=== PATIENT | male | born 1980 | race Caucasian/White ===

== ENCOUNTER 2022-04-20 14:17 | Emergency (ER) | payer SELFPAY ==
[2022-04-20 14:17] VITALS: BP 101/59; PULSE 88; RESP 18; TEMP 37.1; O2SAT 98; BMI 25.1
--- NOTE | 2022-04-20 14:25 | ECG_ITS ---
APPROVED REPORT Exam: Resting ECG HR:79 bpm ECG Measurements Heart Rate 79 AXES AR 130 P 50 QRSd 102 QRS -53 QT 370 T 62 QTc 405 Conclusion SINUS RHYTHM PATTERN CONSISTENT WITH PULMONARY DISEASE LEFT ANTERIOR FASCICULAR BLOCK [QRS AXIS <= -45, QR IN I, RS IN II] ABNORMAL ECG UNCONFIRMED REPORT Electronically signed by : Bassem Damian MD 04/20/2022 21:46:43
--- NOTE | 2022-04-20 14:33 | CT_ITS ---
FINAL REPORT CLINICAL HISTORY: FALL, patient did have LOC , but not sure how long FINDINGS: Axial CT images of the cervical spine were obtained without contrast. Sagittal and coronal reformatted images were also obtained. This study was performed with techniques to keep radiation doses as low as reasonably achievable (ALARA). Individualized dose reduction techniques using automated exposure control or adjustment of mA and/or kV according to the patient's size were employed. There is no evidence of fracture or dislocation. The bony alignment is normal. There are mild degenerative changes at C5-6 and C6-7 with osteophytes. There is neural foraminal narrowing at C5-6 and C6-7. There is mild central canal stenosis at C6-7. No paraspinous soft tissue abnormality is seen. Limited images of the upper thorax are unremarkable. IMPRESSION: Degenerative changes as above with no acute bony abnormality. Reviewed, Interpreted and Dictated by Rubio Clark III, MD Transcribed by Vanessa Noel Authenticated and [facility]
--- NOTE | 2022-04-20 14:33 | CT_ITS ---
FINAL REPORT CLINICAL HISTORY: FALL, patient states he did have LOC , but not sure how long FINDINGS: Axial images of the head were obtained without contrast. Coronal reformatted images were also obtained.This study was performed with techniques to keep radiation doses as low as reasonably achievable (ALARA). Individualized dose reduction techniques using automated exposure control or adjustment of mA and/or kV according to the patient''s size were employed. There is no evidence of intracranial hemorrhage or mass. The ventricular size is within normal limits. There is no evidence of shift of the midline structures. No abnormal extra axial fluid collection is identified. No skull abnormality is seen on the bone window images. There is fluid in the left maxillary sinus, may represent hemorrhage or sinusitis. IMPRESSION: No acute intracranial abnormality. Left maxillary hemorrhage or sinusitis. Reviewed, Interpreted and Dictated by Rubio Clark III, MD Transcribed by Keiry Judge Authenticated and . [facility]
--- NOTE | 2022-04-20 14:47 | PC.NURSE ---
radiology taking pt for CT
--- NOTE | 2022-04-20 14:53 | PC.NURSE ---
PT TO CT AT THIS TIME
[2022-04-20 14:59] LABS: Chloride 100 mmol/L (98-107); Sodium 139 mmol/L (136-145)
--- NOTE | 2022-04-20 14:59 | PC.NURSE ---
PT RETURNED FROM CT
--- NOTE | 2022-04-20 15:00 | HMH.EDGENADL ---
Discharge Plan Disposition Patient Disposition: Home, Self-Care Condition: Good Chief Complaint: Fall Prescriptions Prescriptions: No Action No Known Home Medications Referrals Follow up/Referrals: Provider,Referral, MD [Primary Care Provider] - See instructions Activity Restrictions/Add. Instructions Additional Instructions/Restrictions: Rest and drink plenty of fluids today. You are being provided with a list of physicians available for follow-up of your condition. Please call a physician on this list to arrange a follow-up appointment as soon as possible. Return to the emergency department if fainting recurs or if any new symptoms such as chest pain, shortness of breath, palpitations or rapid heartbeat. Clinical Impressions Clinical Impression: Syncope, Contusion of scalp Instructions Patient Instructions: DI for Syncope in Adults (Fainting) Discharge ED Provider: Yong Harrison General Adult HPI General Chief complaint: Fall Stated complaint: fall Time Seen by Provider: 04/20/22 15:10 Mode of Arrival: EMS Limitations: No Limitations Description of Symptoms (Recalled from ER Triage Doc. by RN): PT BROUGHT IN VIA EMS FOR A FALL FROM STANDING AT HOME. PT STATES HE STOOD UP TO GO TO THE BATHROOM AND FELL TO THE FLOOR. PAIN TO BACK OF HEAD, UNKNOWN TIME OF LOC. DOES NOT TAKE ANY HOME MEDS History of Present Illness HPI narrative: Patient states that he is staying with friends. He says that he stood up to go to the bathroom and reportedly fell back and hit the back of his head. His friends told him that he had lost consciousness. Unknown duration. He now feels fine except for some pain on the back of his head. Denies neck pain. Denies any other injuries. He has not recently been ill. He had no preceding chest pain, shortness of breath, headache, abdominal pain, back pain, nausea, or diaphoresis. No prior history of syncope. He is not on any home medications. He has a heart murmur but no other heart problems. Related Data Home Medications Medication Instructions Recorded Confirmed No Known Home Medications 04/20/22 04/20/22 Allergies Allergy/AdvReac Type Severity Reaction Status Date / Time bee venom protein (honey bee) Allergy Verified 04/20/22 14:32 strawberry Allergy Verified 04/20/22 14:32 [facility] Disclaimer: The information contained in this section may have been updated after the patient was seen, as this information can be updated by other users. Social History Smoking Status: Current every day smoker ROS Obtained: Yes Systems reviewed as appropriate & no additional complaints except as documented Constitutional Constitutional: Denies fever(s), Denies headache(s) and Denies weakness ENT Ears, Nose, Mouth, and Throat: Denies headache(s), Denies nasal discharge and Denies sore throat Cardiovascular Cardiovascular: Denies chest pain and Reports syncope Respiratory Respiratory: Denies shortness of breath and Denies cough Gastrointestinal Gastrointestingal: Denies abdominal pain, constipation, diarrhea or vomiting Genitourinary Male Genitourinary: Denies difficulty urinating and Denies flank pain Musculoskeletal Musculoskeletal: Denies numbness Neurologic Neurologic: Denies headache(s), Denies numbness, Reports syncope and Denies weakness Physical Exam General General appearance: alert and in no apparent distress Head Head exam: normocephalic and other (Tenderness over occipital without hematomas, lacerations, or abrasions) Eye Eye exam: Present normal appearance and EOMI ENT ENT exam: Present mucous membranes moist Neck Neck exam: Present normal inspection, full ROM and trachea midline; Absent tenderness Chest Chest inspection: Present normal inspection and symmetric chest wall rise Respiratory Respiratory exam: Present normal lung sounds bilaterally; Absent respiratory distress Cardiovascular Cardiovascular exam: Present regular rate, normal rh
[2022-04-20 15:01] LABS: Basophils # 0.1 K/mm3 (0-0.2); Basophils % 0.8 % (0.1-2.0); Blood Urea Nitrogen 13 mg/dl (9-20); Creatinine Clearance Estimated 133 mL/min (50-200); Eosinophils # 0.1 K/mm3 (0.0-0.4); Eosinophils % 0.4 % (0.1-12.0); Estimated Glomerular Filt Rate 92 ml/min (>60); GFR (African American) 111 ML/MIN (>60); Hematocrit 48.2 % (42.0-52.0); Hemoglobin 15.9 g/dL (14.1-18.0); Lymphocytes # 1.8 K/mm3 (0.7-4.5); Lymphocytes % 13.7 % (10-50); Mean Corpuscular Hemoglobin 29.8 pg (27.0-31.2); Mean Corpuscular Volume 90.3 fl (80-94); Mean Platelet Volume 7.5 fl (7.4-10.4); Monocytes # 0.6 K/mm3 (0.1-1.0); Monocytes % 4.7 % (1.7-9.3); Neutrophils # 10.5 K/mm3 (1.8-7.8); Neutrophils % 80.5 % (37.0-80.0); Platelet Count 285 K/mm3 (142-424); Red Blood Count 5.34 M/mm3 (4.60-6.20); Red Cell Distribution Width 12.8 % (11.5-17.5); White Blood Count 13.1 K/mm3 (4.8-10.8)
[2022-04-20 15:02] LABS: Alanine Aminotransferase 23 U/L (12-78); Albumin Level 4.2 g/dl (3.5-5.0); Albumin/Globulin Ratio 1.6 (1.1-1.8); Alkaline Phosphatase 70 U/L (38-126); Aspartate Amino Transferase 28 U/L (17-59); Bilirubin,Total 0.5 mg/dl (0.2-1.3); Calcium 8.8 mg/dl (8.4-10.2); Carbon Dioxide 32 mmol/L (22.0-30.0); Globulin 2.7 g/dL (1.3-3.2); Glucose 121 mg/dl (74-100); Total Protein,Serum 6.9 g/dl (6.3-8.2)
--- NOTE | 2022-04-20 15:02 | PC.NURSE ---
radiology transported pt back to the room
[2022-04-20 15:19] VITALS: BP 101/71; BP 106/70; PULSE 76; PULSE 79; PULSE 94
[2022-04-20 17:00] VITALS: BP 110/76; PULSE 97; RESP 20; TEMP 36.8; O2SAT 99
== END 2022-04-20 16:20 | disposition home or self-care (01) ==
PROVIDERS: Emergency Provider Emergency Medicine
DX: R55 Syncope and collapse (principal); S00.03XA Contusion of scalp, initial encounter; W19.XXXA Unspecified fall, initial encounter; F17.210 Nicotine dependence, cigarettes, uncomplicated
CPT/HCPCS: 70450; 72125; 80053; 85025; 93005; 96360; 99285